=== PATIENT | female | born 1955 | race African-American/Black ===

== ENCOUNTER 2022-05-19 18:17 | Emergency (ER) | payer MEDICARE ==
[~2022-05-19] VITALS: Ht 162.6 cm; Wt 124.3 kg
[2022-05-19] MEDS ORDERED: KETOROLAC TROMETHAMINE 30 MG/ML VIAL IM STA (18:49)
[2022-05-19] MEDS ORDERED: METHOCARBAMOL750 MG PO (18:54)
[2022-05-19] MEDS ORDERED: NAPROSYN500 MG PO (18:54)
== END 2022-05-19 19:00 | disposition home or self-care (01) ==
LOC: ER 18:33
DX: M54.42 Lumbago with sciatica, left side (principal); I10 Essential (primary) hypertension; E78.5 Hyperlipidemia, unspecified; K21.9 Gastro-esophageal reflux disease without esophagitis
CPT/HCPCS: 99282; J1885